=== PATIENT | female | born 1980 | race Caucasian/White ===

== ENCOUNTER → 2018-06-17 | Outpatient (CLI) | payer OTHER ==
[~2018-06-17] MED LIST: ESCI5TAB7 PO; FERR325T23 PO; GABA300C10 PO; HYDR-3240 PO; IBUP-1222 PO; IBUP-1223 PO; LEVO1TAB29 PO
== END | disposition home or self-care (01) ==
LOC: STAR 09:34
PROVIDERS: ATTEND Orthopaedic Surgery
DX: Z02.9 Encounter for administrative examinations, unspecified (principal)

== ENCOUNTER 2018-06-23 07:56 | Day surgery (SDC) | payer OTHER ==
[~2018-06-23] VITALS: Ht 160 cm; Wt 87.7 kg
[~2018-06-23 07:56] MED LIST changes: +CEFAZOLIN 1,000 MG ONE; +DEXAMETHASONE 4 MG/ML, 1ML ONE; +FENTANYL PF 250 MCG/5ML ONE; +GLYCOPYRROLATE 0.4 MG/2 ML, 2ML ONE; +MIDAZOLAM 1 MG/ML, 2ML ONE; +NEOSTIGMINE 1 MG/ML, 10ML ONE; +ONDANSETRON 2MG/ML, 2ML ONE; +PROPOFOL 10 MG/ML, 20ML ONE; +ROCURONIUM 10MG/ML,5ML ONE; +WATER-INJECTION,STERILE 10 ML IV ONE
[2018-06-23] MEDS ORDERED: OxyconTIN ER 20 MG TAB.ER PO ONE ×2 (08:00→09:00)
[2018-06-23] MEDS ORDERED: SCOPOLAMINE PATCH, 1.5MG PATCH.TD72 TD ONE ×2 (08:00→09:00)
[2018-06-23] MEDS ORDERED: ACETAMINOPHEN 500 MG TABLET PO ONE ×2 (08:00→09:00)
[2018-06-23] MEDS ORDERED: GABAPENTIN 300 MG CAPSULE PO ONE ×2 (08:00→09:00)
[2018-06-23 08:27] VITALS: BP 139/90
[2018-06-23] MEDS ORDERED: ROPIvacaine/PF 0.2%, 20 ML ONE (08:40)
[2018-06-23] MEDS ORDERED: LACTATED RINGERS 1,000 ML IV SCH ×2 (08:45→09:25)
[2018-06-23] MEDS ORDERED: LEVONORGESTREL ETH ESTRADIOL PO SCH (09:00)
[2018-06-23] MEDS ORDERED: IBUPROFEN 800 MG TABLET PO SCH (09:00)
[2018-06-23] MEDS ORDERED: TEMPLATE NON-FORMULARY MED. (Gabapentin** 300 MG) PO SCH (09:00)
[2018-06-23] MEDS ORDERED: TEMPLATE NON-FORMULARY MED. (Escitalopram Oxalate** (Lexapro**) 5 MG) PO SCH (09:00)
[2018-06-23 09:21] LABS: HCG UR SG 1.027 (1.003-1.030)
[2018-06-23] MEDS ORDERED: BUPIVACAINE/PF-EPI 0.5% 1:200K ONE (09:23)
[2018-06-23] MEDS ORDERED: LIDOCAINE 1%-EPI 1:100K, 30ML ONE (09:23)
[2018-06-23] MEDS ORDERED: DIPHENHYDRAMINE 50 MG/ML, 1ML IM PRN (09:30)
[2018-06-23] MEDS ORDERED: OXYcodone 5 MG/5 ML ORAL.SOL UDC PO PRN (09:30)
[2018-06-23] MEDS ORDERED: LABETALOL 5MG/ML, 20ML IV PRN (09:30)
[2018-06-23] MEDS ORDERED: PROMETHAZINE 12.5 MG SUPP PR PRN (09:30)
[2018-06-23] MEDS ORDERED: MORPHINE SULFATE 4 MG/ML, 1ML IVPush PRN (09:30)
[2018-06-23] MEDS ORDERED: ONDANSETRON 2MG/ML, 2ML IV PRN (09:30)
[2018-06-23] MEDS ORDERED: PROMETHAZINE 25 MG/ML, 1ML IV PRN (09:30)
[2018-06-23] MEDS ORDERED: HALOPERIDOL 5 MG/ML IV PRN (09:30)
[2018-06-23] MEDS ORDERED: hydrALAzine 20 MG/ML, 1ML IV PRN (09:30)
[2018-06-23] MEDS ORDERED: PROCHLORPERAZINE 5 MG/ML, 2ML IV PRN ×2 (09:30)
[2018-06-23] MEDS ORDERED: PROMETHAZINE 25 MG/ML, 1ML IM PRN ×2 (09:30)
[2018-06-23] MEDS ORDERED: PROMETHAZINE 25 MG SUPP PR PRN (09:30)
[2018-06-23] MEDS ORDERED: ONDANSETRON ODT 8 MG PO PRN (09:30)
[2018-06-23] MEDS ORDERED: MEPERIDINE/PF 25MG/0.5ML IVPush PRN (09:30)
[2018-06-23] MEDS ORDERED: PHENYLEPHRINE 10 MG/ML ONE (09:58)
[2018-06-23] MEDS ORDERED: HYDROmorphone 2 MG/ML, 1ML ONE (11:31)
[2018-06-23] MEDS ORDERED: OXYcodone 5 MG/5 ML ORAL.SOL UDC ONE (11:31)
[2018-06-23] MEDS ORDERED: FENTANYL PF 100 MCG/2ML ONE (11:31)
[2018-06-23] MEDS: FENTANYL PF 100 MCG/2ML IV PRN ×2 (11:34→11:45)
[2018-06-23] MEDS: HYDROmorphone 1 MG/ML, 1ML IV PRN ×3 (11:38→11:58)
== END 2018-06-23 13:55 | disposition home or self-care (01) ==
LOC: OUT 07:56
PROVIDERS: ATTEND Orthopaedic Surgery
DX: S83.512A Sprain of anterior cruciate ligament of left knee, initial encounter (principal); S83.207A Unspecified tear of unspecified meniscus, current injury, left knee, initial encounter; M65.862 Other synovitis and tenosynovitis, left lower leg; F32.9 Major depressive disorder, single episode, unspecified; Z79.899 Other long term (current) drug therapy; X58.XXXA Exposure to other specified factors, initial encounter; Y93.89 Activity, other specified; Y92.89 Other specified places as the place of occurrence of the external cause; Y99.8 Other external cause status
CPT/HCPCS: 29881; 29888; 81025; C1713; J0690; J1100; J1170; J2250; J2370; J2405; J2704; J2710; J2795; J3010; J3490; J7120